=== PATIENT | female | born 1990 | race American Indian/Alaskan Native ===

== ENCOUNTER 2019-05-20 13:25 | Emergency (ER) | payer SELFPAY ==
[2019-05-20] MEDS ORDERED: ACETAMINOPEN W/CODEINE 120-12MG ORAL LIQD 5 ML PO ONE (16:39)
[2019-05-20 17:06] LABS: Basophils # (Auto) 0.1 K/mm3 (0.0-0.1); Basophils % (Auto) 0.5 % (0.0-1.8); Eosinophils # (Auto) 0.2 K/mm3 (0.0-0.4); Eosinophils % (Auto) 1.4 % (0.0-4.3); Hematocrit 43.3 % (30.3-42.9); Hemoglobin 14.5 gm/dl (10.1-14.3); Lymphocytes # (Auto) 2.2 K/mm3 (1.2-5.4); Lymphocytes % (Auto) 17.8 % (13.4-35.0); Mean Corpuscular HGB Conc 33 % (30-34); Mean Corpuscular Volume 93 fl (79-97); Monocytes # (Auto) 0.7 K/mm3 (0.0-0.8); Monocytes % (Auto) 5.7 % (0.0-7.3); Red Blood Count 4.65 M/mm3 (3.65-5.03); Red Cell Distribution Width 13.3 % (13.2-15.2)
[2019-05-20 17:07] LABS: Platelet Count 306 K/mm3 (140-440)
[2019-05-20 17:25] LABS: BUN/Creatinine Ratio 8; Blood Urea Nitrogen 7 mg/dL (7-17); Calcium 8.9 mg/dL (8.4-10.2); Hemolysis Index 13
--- NOTE | 2019-05-20 17:44 | XRay Report ---
CHEST 2 VIEWS INDICATION / CLINICAL INFORMATION: Cough and shortness of breath for 3 days. COMPARISON: None available. FINDINGS: SUPPORT DEVICES: None. HEART / MEDIASTINUM: The heart size and pulmonary vasculature are normal. LUNGS / PLEURA: No significant pulmonary or pleural abnormality. No pneumothorax. ADDITIONAL FINDINGS: There are bilateral nipple piercings. IMPRESSION: No acute findings. Signer Name: Lamin Livingston MD Signed: 05/20/2019 5:40 PM Workstation Name: [id number]
[2019-05-20] MEDS ORDERED: IBUPROFEN 800 MG TAB PO ONE (17:52)
--- NOTE | 2019-05-20 18:03 | Emergency Department Report ---
Minor Respiratory - HPI Chief Complaint: Chest Pain Stated Complaint: CHEST PAIN/WEAK/CHILLS/TIGHT PAIN Time Seen by Provider: 05/20/19 16:18 Duration: 3 Days Pain Location: Facial, Nose, Chest Severity: moderate Minor Respiratory: Yes Able to Tolerate Fluids, Yes Cough, Yes Chest Pain, No Rhinorrhea, No Sore Throat, No Ear Pain, No Sick Contacts, No Hemoptysis, No Evelyn rtness of Breath, No Fever Other History: This is a 28-year-old female presents to ED complaining of midsternal chest pain that is worse with coughing the past couple of days. Patient states that she feels sake and his fatigue. Patient states history of bronchitis long time ago. Patient denies any history of asthma, shortness of breath, fever, nausea vomiting or abdominal pain ED Review of Systems ROS: Stated complaint: CHEST PAIN/WEAK/CHILLS/TIGHT PAIN Other details as noted in HPI Comment: All other systems reviewed and negative ED Past Medical Hx - Past Medical History Previous Medical History?: No - Surgical History Past Surgical History?: Yes Additional Surgical History: X 2 - Social History Smoking Status: Current Some Day Smoker Substance Use Type: Alcohol, Marijuana - Medications Home Medications: Home Medications Medication Instructions Recorded Confirmed Last Taken Type Acetaminophen/Codeine 1 tab PO Q6H PRN #12 tab 09/06/14 Unknown Rx [Acetaminophen-Codeine #3 TAB] Amoxicillin [Trimox CAP] 500 mg PO Q8H #30 capsule 09/06/14 Unknown Rx Promethazine Dm (Nf) [Phenergan Dm 5 ml PO Q6H PRN #120 ml 09/06/14 Unknown Rx 6.25/15 mg 5 ml] Ondansetron [Zofran Odt] 4 mg PO Q6H #20 tab.rapdis 12/09/14 Unknown Rx traMADol [Ultram] 50 mg PO Q6HR PRN #14 tablet 12/09/14 Unknown Rx Ibuprofen [Motrin 800 MG tab] 800 mg PO TID #30 tablet 05/20/19 Unknown Rx guaiFENesin DM [Guaifenesin Dm 10 ml PO TID #12 ml 05/20/19 Unknown Rx Syrup] Minor Respiratory Exam - Exam General: Vital signs noted. No distress. Alert and acting appropriately. HEENT: Yes Moist Mucous Membranes, No Pharyngeal Erythema, No Pharyngeal Exudates, No Rhinorrhea, No Conjuctival Injection, No Frontal Tenderness, No Maxillary Tenderness Ear: Neither TM Bulge, Neither TM Erythema, Neither EAC Pain, Neither EAC Discharge Neck: Yes Supple, No Adenopathy Lungs: Yes Good Air Exchange, No Wheezes, No Ronchi, No Stridor, No Cough, No Labored Respirations, No Retractions, No Use of Accessory Muscles, No Other Abnormal Lung Sounds Heart: Yes Regular, No Murmur Abdomen: Yes Normal Bowel Sounds, No Tenderness, No Peritoneal Signs Skin: No Rash, No Edema Neurologic: Alert and oriented, no deficits. Musculoskeletal: Unremarkable. ED Course Vital Signs 05/20/19 13:33 Temperature 98.4 F Pulse Rate 54 L Respiratory 18 Rate Blood Pressure 114/76 O2 Sat by Pulse 100 Oximetry ED Medical Decision Making - Lab Data Result diagrams: 05/20/19 16:48 05/20/19 16:48 Laboratory Last Values WBC 12.5 K/mm3 (4.5-11.0) H 05/20/19 16:48 RBC 4.65 M/mm3 (3.65-5.03) 05/20/19 16:48 Hgb 14.5 gm/dl (10.1-14.3) H 05/20/19 16:48 Hct 43.3 % (30.3-42.9) H 05/20/19 16:48 MCV 93 fl (79-97) 05/20/19 16:48 MCH 31 pg (28-32) 05/20/19 16:48 MCHC 33 % (30-34) 05/20/19 16:48 RDW 13.3 % (13.2-15.2) 05/20/19 16:48 Plt Count 306 K/mm3 (140-440) 05/20/19 16:48 Lymph % (Auto) 17.8 % (13.4-35.0) 05/20/19 16:48 Leake % (Auto) 5.7 % (0.0-7.3) 05/20/19 16:48 Eos % (Auto) 1.4 % (0.0-4.3) 05/20/19 16:48 Baso % (Auto) 0.5 % (0.0-1.8) 05/20/19 16:48 Lymph # 2.2 K/mm3 (1.2-5.4) 05/20/19 16:48 Leake # 0.7 K/mm3 (0.0-0.8) 05/20/19 16:48 Eos # 0.2 K/mm3 (0.0-0.4) 05/20/19 16:48 Baso # 0.1 K/mm3 (0.0-0.1) 05/20/19 16:48 Seg Neutrophils % 74.6 % (40.0-70.0) H 05/20/19 16:48 Seg Neutrophils # 9.4 K/mm3 (1.8-7.7) H 05/20/19 16:48 Sodium 140 mmol/L (137-145) 05/20/19 16:48 Potassium 4.0 mmol/L (3.6-5.0) 05/20/19 16:48 Chloride 103.3 mmol/L (98-107) 05/20/19 16:48 Carbon Dioxide 25 mmol/L (22-30) 05/20/19 16:48 Anion Gap 16 mmol/L 05/20/19 16:48 BUN 7 mg/dL (7-17) 05/20/19 16:48 Creatinine 0.9 mg/dL (0.7-1.2) 05/20/19 16:48 Estimated GFR > 60 ml/min 05/20/19 16:48 BUN/Creatinine Ratio 8 % 05/20/19 16:48 Glucose 85 mg/dL (65-100) 05/20/19 16:48 Calcium 8.9 mg/dL (8.4-10.2) 05/20/19 16:48 HCG, Qual Negative (Negative) 05/20/19 16:48 - Radiology Data Radiology results: report reviewed, image reviewed - Medical Decision Making 28-year-old female presents with a progressive infection. CBC BMP test were ordered. Labs within normal limits mild elevation of white count which is most likely due to viral syndrome. Chest x-ray shows no acute findings. Discussed all findings with the patient. Discussed with patient to increase hydration throughout the day. Discussed symptomatic relief. Patient received Motrin and cough suppressant in the ED. She reports feeling a little better prior to discharge. Discussed with patient to follow up with a primary care physician. Critical care attestation.: If time is entered above; I have spent that time in minutes in the direct care of this critically ill patient, excluding procedure time. ED Disposition Clinical Impression: Upper respiratory infection, Acute bronchitis Disposition: DC-01 TO HOME OR SELFCARE Is pt being admited?: No Does the pt Need Aspirin: No Condition: Stable Instructions: Upper Respiratory Infection (ED), Viral Syndrome (ED), Acute Bron chitis (ED) Additional Instructions: Make sure to follow up with the primary care physician as discussed. Take all your medications as you've been prescribed. If you have any worsening symptoms or develop new symptoms please return to ED immediately. Prescriptions: guaiFENesin DM [Guaifenesin Dm Syrup] 10 ml PO TID #12 ml Ibuprofen [Motrin 800 MG tab] 800 mg PO TID #30 tablet Referrals: MICHELE DE LOS SANTOS MD [Primary Care Provider] - 3-5 Days [facility] [Outside] - 3-5 Days Forms: Accompanied Note, Work/School Release Form(ED) Time of Disposition: 18:07
[2019-05-20 18:27] VITALS: BP 116/74
== END 2019-05-20 18:26 | disposition home or self-care (01) ==
LOC: ED 13:25
DX: J06.9 Acute upper respiratory infection, unspecified (principal); J20.9 Acute bronchitis, unspecified
CPT/HCPCS: 36415; 71046; 80048; 84703; 85025

== ENCOUNTER 2019-06-10 08:55 | Emergency (ER) | payer SELFPAY ==
[2019-06-10 09:14] VITALS: BP 131/93
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
== END 2019-06-10 11:12 | disposition left against medical advice (07) ==
LOC: ED 08:55
DX: M25.561 Pain in right knee (principal); M25.562 Pain in left knee
CPT/HCPCS: 99281

== ENCOUNTER 2019-06-18 16:00 | Emergency (ER) | payer OTHER ==
[2019-06-18 16:08] VITALS: BP 129/78
--- NOTE | 2019-06-18 16:18 | Emergency Department Report ---
[facility] Chief Complaint: Eye Problems Stated Complaint: EYES SWOLLEN/ITCHY Time Seen by Provider: 06/18/19 16:13 Duration: 1 Day Severity: mild Symptoms: Yes Eye Itching, No Eye Redness, No Eye Pain, No Mucous Drainage, No Purulent Drainage, No Blurred Vision, No Preceding URI, No H/O Allergic Rhinitis, No Contact Lens Use, No Trauma, No Fever, No Headache Other History: This is a 28-year-old female nontoxic well in appearance with no signs of distress presents to the ED with right eye crusting and itching with redness. Stated has watery eyes which causes visuon to be some blurry. Patie nt denies any eye pain or foreign body sensation. Patient denies any other symptoms. Denies any blurry vision or visual changes. Denies any fever, chills, headache, nausea, vomiting, chest pain or SOB. Denies any other complaints. Denies any allergies. ED Review of Systems ROS: Stated complaint: EYES SWOLLEN/ITCHY Other details as noted in HPI Constitutional: denies: chills, fever Eyes: eye discharge. denies: eye pain, vision change ENT: denies: ear pain, throat pain Respiratory: denies: cough, shortness of breath, wheezing Cardiovascular: denies: chest pain, palpitations Endocrine: no symptoms reported Gastrointestinal: denies: abdominal pain, nausea, diarrhea Genitourinary: denies: urgency, dysuria, discharge Musculoskeletal: denies: back pain, joint swelling, arthralgia Skin: denies: rash, lesions Neurological: denies: headache, weakness, paresthesias Psychiatric: denies: anxiety, depression Hematological/Lymphatic: denies: easy bleeding, easy bruising ED Past Medical Hx - Past Medical History Previous Medical History?: No - Surgical History Past Surgical History?: Yes Additional Surgical History: X 2 - Social History Smoking Status: Current Every Day Smoker Substance Use Type: Alcohol - Medications Home Medications: Home Medications Medication Instructions Recorded Confirmed Last Taken Type Acetaminophen/Codeine 1 tab PO Q6H PRN #12 tab 09/06/14 Unknown Rx [Acetaminophen-Codeine #3 TAB] Amoxicillin [Trimox CAP] 500 mg PO Q8H #30 capsule 09/06/14 Unknown Rx Promethazine Dm (Nf) [Phenergan Dm 5 ml PO Q6H PRN #120 ml 09/06/14 Unknown Rx 6.25/15 mg 5 ml] Ondansetron [Zofran Odt] 4 mg PO Q6H #20 tab.rapdis 12/09/14 Unknown Rx traMADol [Ultram] 50 mg PO Q6HR PRN #14 tablet 12/09/14 Unknown Rx Ibuprofen [Motrin 800 MG tab] 800 mg PO TID #30 tablet 05/20/19 Unknown Rx guaiFENesin DM [Guaifenesin Dm 10 ml PO TID #12 ml 05/20/19 Unknown Rx Syrup] Polymyxin B Sulf/Trimethoprim 3 drops OD TID #1 drops 06/18/19 Unknown Rx [Polytrim Eye Drops] [facility] Exam - Exam General: Vital signs noted. No distress. Alert and acting appropriately. Eye Exam: Neither Injection, Neither Abnormal Pupil, Neither EOMI, Neither Eye Foreign Body, Neither Lid Foreign Body, Neither Fluorescein Uptake, Neither Fluorescein Uptake (slit lamp), Neither Corneal Edema, Neither Photophobia HEENT: No Nasal Congestion, No Pharyngeal Erythema Remainder of HEENT: Normal Lungs: Yes Clear Lung Sounds, Yes Good Air Exchange, No Wheezes, No Stridor, No Cough, No Nasal Flaring, No Retractions, No Use of Accessory Muscles ED Course Vital Signs 06/18/19 16:07 Temperature 98.6 F Pulse Rate 84 Respiratory 18 Rate Blood Pressure 129/78 [Left] O2 Sat by Pulse 98 Oximetry - Reevaluation(s) Reevaluation #1: 06/18/19 16:15 Patient is speaking in full sentences with no signs of distress noted. ED Medical Decision Making - Medical Decision Making Patient was instructed to Follow-up with a primary care doctor in 3-5 days or if symptoms worsen and continue return to emergency room as soon as possible. At time of discharge, the patient does not seem toxic or ill in appearance. No acute signs of distress noted. Patient agrees to discharge treatment plan of care. No further questions noted by the patient. Critical care attestation.: If time is entered above; I have spent that time in minutes in the direct care of this critically ill patient, excluding procedure time. ED Disposition Clinical Impression: Conjunctivitis, right eye Qualifiers: Conjunctivitis type: acute Acute conjunctivitis type: bacterial Qualified Code(s): H10.31 - Unspecified acute conjunctivitis, right eye Disposition: DC-01 TO HOME OR SELFCARE Is pt being admited?: No Does the pt Need Aspirin: No Condition: Stable Instructions: Conjunctivitis (ED) Additional Instructions: Follow-up with a primary care doctor in 3-5 days or if symptoms worsen and continue return to emergency room as soon as possible. Prescriptions: Polymyxin B Sulf/Trimethoprim [Polytrim Eye Drops] 3 drops OD TID #1 drops Referrals: PRIMARY CAREMD [Referring] - 3-5 Days MATEUSZ TRENT MD [Staff Physician] - 3-5 Days [facility] [Outside] - 3-5 Days Forms: Work/School Release Form(ED)
== END 2019-06-18 16:56 | disposition home or self-care (01) ==
LOC: ED 16:00
DX: H10.31 Unspecified acute conjunctivitis, right eye (principal); F17.200 Nicotine dependence, unspecified, uncomplicated; Z79.899 Other long term (current) drug therapy
CPT/HCPCS: 99282

== ENCOUNTER 2022-05-16 13:22 | Emergency (ER) | payer OTHER ==
[2022-05-16 16:42] VITALS: BP 126/85
--- NOTE | 2022-05-16 16:52 | Emergency Department Report ---
- General Chief Complaint: Upper Respiratory Infection Stated Complaint: CHEST PAIN, COUGH,HEADACHE,BODYACHE Source: patient Mode of arrival: Ambulatory Limitations: No Limitations - History of Present Illness Initial Comments: 31-year-old -[place] female complaining of body aches cough times approximately 1 week. Admits to being a smoker admits that cough is productive with yellowish sputum. MD Complaint: fever, cough, nasal congestion -: Gradual, week(s) (1) Severity: mild Consistency: intermittent Improves With: nothing Worsens With: nothing Associated Symptoms: denies other symptoms, myalgias, cough Treatments Prior to Arrival: none - Related Data Previous Rx's Medication Instructions Recorded Last Taken Type Acetaminophen/Codeine 1 tab PO Q6H PRN #12 tab 09/06/14 Unknown Rx [Acetaminophen-Codeine #3 TAB] Amoxicillin [Trimox CAP] 500 mg PO Q8H #30 capsule 09/06/14 Unknown Rx Promethazine Dm (Nf) [Phenergan Dm 5 ml PO Q6H PRN #120 ml 09/06/14 Unknown Rx 6.25/15 mg 5 ml] Ondansetron [Zofran Odt] 4 mg PO Q6H #20 tab.rapdis 12/09/14 Unknown Rx traMADoL [Ultram] 50 mg PO Q6HR PRN #14 tablet 12/09/14 Unknown Rx Ibuprofen [Motrin 800 MG tab] 800 mg PO TID #30 tablet 05/20/19 Unknown Rx guaiFENesin DM [Guaifenesin Dm 10 ml PO TID #12 ml 05/20/19 Unknown Rx Syrup] Polymyxin B Sulf/Trimethoprim 3 drops OD TID #1 drops 06/18/19 Unknown Rx [Polytrim Eye Drops] Albuterol Mdi (or & Nicu Only) 1 puff IH Q6H PRN #8.5 gram 05/16/22 Unknown Rx [ProAir HFA Inhaler] Amoxicillin/K Clav Tab [Augmentin 1 tab PO Q12HR #14 tab 05/16/22 Unknown Rx 875 mg] predniSONE [Deltasone] 50 mg PO QDAY #7 tab 05/16/22 Unknown Rx Allergies Allergy/AdvReac Type Severity Reaction Status Date / Time No Known Allergies Allergy Verified 05/16/22 16:42 ED Review of Systems ROS: Stated complaint: CHEST PAIN, COUGH,HEADACHE,BODYACHE Other details as noted in HPI Constitutional: denies: chills, fever Eyes: denies: eye pain, eye discharge, vision change ENT: denies: ear pain, throat pain Respiratory: cough, shortness of breath, wheezing Cardiovascular: chest pain (Chest pains with coughing). denies: palpitations Endocrine: no symptoms reported Gastrointestinal: denies: abdominal pain, nausea, diarrhea Genitourinary: denies: urgency, dysuria, discharge Musculoskeletal: denies: back pain, joint swelling, arthralgia Skin: denies: rash, lesions Neurological: denies: headache, weakness, paresthesias Psychiatric: denies: anxiety, depression Hematological/Lymphatic: denies: easy bleeding, easy bruising ED Past Medical Hx - Past Medical History Previous Medical History?: No - Surgical History Additional Surgical History: X 2 - Social History Smoking Status: Current Every Day Smoker Substance Use Type: Alcohol - Medications Home Medications: Home Medications Medication Instructions Recorded Confirmed Last Taken Type Acetaminophen/Codeine 1 tab PO Q6H PRN #12 tab 09/06/14 Unknown Rx [Acetaminophen-Codeine #3 TAB] Amoxicillin [Trimox CAP] 500 mg PO Q8H #30 capsule 09/06/14 Unknown Rx Promethazine Dm (Nf) [Phenergan Dm 5 ml PO Q6H PRN #120 ml 09/06/14 Unknown Rx 6.25/15 mg 5 ml] Ondansetron [Zofran Odt] 4 mg PO Q6H #20 tab.rapdis 12/09/14 Unknown Rx traMADoL [Ultram] 50 mg PO Q6HR PRN #14 tablet 12/09/14 Unknown Rx Ibuprofen [Motrin 800 MG tab] 800 mg PO TID #30 tablet 05/20/19 Unknown Rx guaiFENesin DM [Guaifenesin Dm 10 ml PO TID #12 ml 05/20/19 Unknown Rx Syrup] Polymyxin B Sulf/Trimethoprim 3 drops OD TID #1 drops 06/18/19 Unknown Rx [Polytrim Eye Drops] Albuterol Mdi (or & Nicu Only) 1 puff IH Q6H PRN #8.5 gram 05/16/22 Unknown Rx [ProAir HFA Inhaler] Amoxicillin/K Clav Tab [Augmentin 1 tab PO Q12HR #14 tab 05/16/22 Unknown Rx 875 mg] predniSONE [Deltasone] 50 mg PO QDAY #7 tab 05/16/22 Unknown Rx ED Physical Exam - General Limitations: No Limitations General appearance: alert, in no apparent distress - Head Head exam: Present: atraumatic, normocephalic - Eye Eye exam: Present: normal appearance, PERRL, EOMI - ENT ENT exam: Present: normal exam, normal orophraynx, mucous membranes moist - Neck Neck exam: Present: normal inspection - Respiratory Respiratory exam: Present: normal lung sounds bilaterally, wheezes, chest wall tenderness. Absent: respiratory distress - Cardiovascular Cardiovascular Exam: Present: regular rate, normal rhythm. Absent: systolic murmur, diastolic murmur, rubs, gallop - GI/Abdominal GI/Abdominal exam: Present: soft, normal bowel sounds - Extremities Exam Extremities exam: Present: normal inspection - Back Exam Back exam: Present: normal inspection, full ROM - Neurological Exam Neurological exam: Present: alert, oriented X3, CN II-XII intact, normal gait - Psychiatric Psychiatric exam: Present: normal affect, normal mood - Skin Skin exam: Present: warm, dry, intact, normal color. Absent: rash ED Course Vital Signs 05/16/22 16:35 Temperature 98.6 F Pulse Rate 70 Respiratory 16 Rate Blood Pressure 126/85 O2 Sat by Pulse 99 Oximetry Critical care attestation.: If time is entered above; I have spent that time in minutes in the direct care of this critically ill patient, excluding procedure time. ED Disposition Clinical Impression: Acute bronchitis Qualifiers: Bronchitis organism: unspecified organism Qualified Code(s): J20.9 - Acute bronchitis, unspecified Disposition: 01 HOME / SELF CARE / HOMELESS Is pt being admited?: No Does the pt Need Aspirin: No Condition: Stable Instructions: Acute Bronchitis (ED), Acute Bronchitis, Adult, [id number], Acute Bronchitis, Adult Prescriptions: Amoxicillin/K Clav Tab [Augmentin 875 mg] 1 tab PO Q12HR #14 tab predniSONE [Deltasone] 50 mg PO QDAY #7 tab Albuterol Mdi (or & Nicu Only) [ProAir HFA Inhaler] 1 puff IH Q6H PRN #8.5 gram PRN Reason: Wheezing
== END 2022-05-16 17:02 | disposition home or self-care (01) ==
LOC: ED 13:22
DX: J20.9 Acute bronchitis, unspecified (principal); F17.200 Nicotine dependence, unspecified, uncomplicated; Z98.890 Other specified postprocedural states; Z72.89 Other problems related to lifestyle; Z79.899 Other long term (current) drug therapy
CPT/HCPCS: 99282